=== PATIENT | female | born 1950 | race Caucasian/White ===

== ENCOUNTER → 2017-07-17 | Outpatient (CLI) | payer OTHER, MEDICARE ==
[~2017-07-17] MED LIST: ADVAIR 250-501 EACH INH; AZITHROMYCIN 2250 MG PO; COUMADIN; COUMADIN 10MG T10 M1 PO; DARVOCET-N 1001 EACH PO; DOXYCYCLINE 10100 MG PO; FISH OIL 1,001000 M2 PO; FISHOIL; FLEXERIL PO; LOVASTAT40; MECLIZINE HCL25 M1 PO; MEDROL DOSPAK21 TAB PO; NORCO 5-325 TA1 EACH PO; NORVASC5 MG PO; PREDNISONE50 MG PO; PRINIVIL20 MG PO; VENTOLIN HFA 1818 GM INH; VITAMIN D32000 UNIT PO; [UNRECOGNIZED DRUG - OTHER]
== END ==
LOC: RAD 03:57
DX: Z12.31 Encounter for screening mammogram for malignant neoplasm of breast (principal)

== ENCOUNTER → 2018-07-20 | Outpatient (CLI) | payer OTHER, MEDICARE | LOC: RAD 01:11 | DX: Z12.31 Encounter for screening mammogram for malignant neoplasm of breast (principal); I10 Essential (primary) hypertension ==

== ENCOUNTER → 2019-07-21 | Outpatient (CLI) | payer OTHER, MEDICARE | LOC: RAD 01:28 | DX: Z12.31 Encounter for screening mammogram for malignant neoplasm of breast (principal) ==

== ENCOUNTER → 2020-07-23 | Outpatient (CLI) | payer OTHER, MEDICARE | LOC: BC 12:09 | PROVIDERS: ATTEND Internal Medicine | DX: Z12.31 Encounter for screening mammogram for malignant neoplasm of breast (principal) ==

== ENCOUNTER → 2021-07-24 | Outpatient (CLI) | payer OTHER, MEDICARE | LOC: BC 10:57 | PROVIDERS: ATTEND Internal Medicine | DX: Z12.31 Encounter for screening mammogram for malignant neoplasm of breast (principal); N64.89 Other specified disorders of breast ==